=== PATIENT | male | born 1930 | race Caucasian/White ===

== ENCOUNTER 2018-01-20 06:24 | Emergency (ER) | payer MEDICARE ==
[2018-01-20] MEDS ORDERED: Sodium Chloride 0.9% 10 ML Syringe FLUSH PRN (06:43)
--- NOTE | 2018-01-20 06:49 | EDM.PDOC ---
ED HPI GENERAL MEDICAL PROBLEM - General Source of Information: Reports: Patient, Fpc Records, RN, RN Notes Reviewed History Limitations: Reports: Altered Mental Status - History of Present Illness Onset: Today, Sudden <China Jackson - Last Filed: 01/20/18 07:17> - General Source of Information: Reports: Family (, [id number]) - History of Present Illness Location: Reports: Head Severity: Moderate Associated Symptoms: Reports: No Other Symptoms <Myrna Rene - Last Filed: 01/20/18 08:38> - General Chief Complaint: Head Injury Stated Complaint: FALL IN BY AMB Time Seen by Provider: 01/20/18 06:40 - History of Present Illness INITIAL COMMENTS - FREE TEXT/NARRATIVE: Pt to ER per [facility] after a fall at the [facility]. [facility] records show the patient is up with one assist and a walker. Patient is confused upon arrival, but patient was just admitted to [facility] yesterday, and it is unknown what his baseline is. GCS upon arrival is 14. Patient obeys commands, does not always answer appropriately. States "yes" to most questions. No obvious deformity, bruising, abrasions other than large hematoma on left occiput of head. Patient airway patent, breathing adequately on his own. HR irreg. (China Jackson) I assumed care of pt from China CROWE at 0700HR shift change with CT Head report pending. No changes to CC/HPI, Hx, ROS, or exam as documented by China for this encounter. Pt arrived without C-collar. He was reported to have full spontaneous ROM of his neck, and C-spine was cleared on arrival by Hx and exam by China. Pt's family state pt is at his baseline for mental status and confusion. Family states pt has advanced Alzheimer's dementia. (Myrna Rene) - Related Data Allergies Allergy/AdvReac Type Severity Reaction Status Date / Time aspirin Allergy Other Verified 01/20/18 06:48 Past Medical History Psychiatric History: Reports: Alzheimers Disease <Myrna Rene - Last Filed: 01/20/18 08:38> Social & Family History - Family History Family Medical History: Unobtainable - Living Situation & Occupation Living situation: Reports: , Extended Care Facility Occupation: Retired <Myrna Rene - Last Filed: 01/20/18 08:38> Review of Systems - Review of Systems Review Of Systems: ROS reveals no pertinent complaints other than HPI. <China Jackson - Last Filed: 01/20/18 07:17> ED EXAM, GENERAL - Physical Exam Exam: See Below Exam Limited By: Altered Mental Status General Appearance: Alert, No Apparent Distress Eye Exam: Bilateral Eye: PERRL (2, sluggish) Ears: Normal External Exam, Hearing Grossly Normal Nose: Normal Inspection Throat/Mouth: Normal Inspection, Normal Voice, No Airway Compromise Head: Other (large hematoma to the left occiput) Neck: Normal Inspection Respiratory/Chest: No Respiratory Distress, Lungs Clear, No Accessory Muscle Use , Chest Non-Tender, Decreased Breath Sounds Cardiovascular: Normal Peripheral Pulses, Irregularly Irregular Peripheral Pulses: 2+: Radial (L), Radial (R) GI/Abdominal: Normal Bowel Sounds, Soft, Non-Tender (Male) Exam: Deferred Rectal (Males) Exam: Deferred Back Exam: Normal Inspection, Decreased Range of Motion Extremities: Normal Inspection, Non-Tender, No Pedal Edema, Normal Capillary Refill, Limited Range of Motion Neurological: Alert, Inattentive, Confused, Disoriented, Slow to Respond Psychiatric: Flat Affect Skin Exam: Warm, Dry, Intact, Normal Color <China Jackson - Last Filed: 01/20/18 07:17> - Physical Exam Neck: Supple, Non-Tender, Full Range of Motion, Carotid Bruit. No: Tender Lateral, Tender Midline Extremities: No: Joint Swelling, Arm Pain, Leg Pain Neurological: Oriented (to person only), Normal Gait, Other (GCS 14 at 1 hour and at discharge.) <Myrna Rene - Last Filed: 01/20/18 08:38> - Physical Exam Free Text/Narrative:: No changes to exam as documented by China Jackson [facility] for this encounter. Pt ambulated well in the ER with use of walker. Pt denies pain. Family noted some redness and inflammation at the Rt eye/eyelid. state he just finished tx for conjunctivitis. There is no drainage or matting. (Myrna Rene) EKG INTERPRETATION EKG Date: 01/20/18 Time: 06:53 Rhythm: A-Fib Rate (Beats/Min): 103 Comparison: NA - No Prior EKG <China Jackson - Last Filed: 01/20/18 07:17> P-Wave: Absent QRS: LBBB ST-T: Normal QT: Normal <Myrna Rene - Last Filed: 01/20/18 08:38> Course <China Jackson - Last Filed: 01/20/18 07:17> - Radiology Interpretation CT Results Date: 01/20/18 <Myrna Rene - Last Filed: 01/20/18 08:38> - Orders/Labs/Meds Orders: Active Orders 24 hr Category Date Time Status EKG Documentation Completion [RC] STAT Care 01/20/18 06:43 Active Peripheral IV Care [RC] . DIRECTED Care 01/20/18 06:45 Active Head w Cont [CT] Stat Exams 01/20/18 07:27 Taken UA W/MICROSCOPIC [URIN] Stat Lab 01/20/18 06:43 Ordered Sodium Chloride 0.9% [Saline Flush] Med 01/20/18 06:43 Active 10 ml FLUSH ASDIRECTED PRN Peripheral IV Insertion Adult [OM.PC] Stat Oth 01/20/18 06:43 Ordered Medication Orders Sodium Chloride (Saline Flush) 10 ml FLUSH ASDIRECTED PRN PRN Reason: Keep Vein Open Labs: Laboratory Tests 01/20/18 01/20/18 01/20/18 Range/Units 06:37 06:37 06:37 WBC 5.1 (5.0-10.0) 10^3/uL RBC 7.24 H (4.6-6.2) 10^6/uL Hgb 16.7 (14.0-18.0) g/dL Hct 58.1 H (40.0-54.0) % MCV 80.2 (80-100) fL MCH 23.1 L (27.0-34.0) pg MCHC 28.7 L (33.0-35.0) g/dL Plt Count 166 (150-450) 10^3/uL Neut % (Auto) 67.2 (42.2-75.2) % Lymph % (Auto) 24.6 (20.5-50.1) % Reynolds % (Auto) 7.2 (2-8) % Eos % (Auto) 0.6 L (1.0-3.0) % Baso % (Auto) 0.4 (0.0-1.0) % PT 14.4 H (9.0-12.0) SEC INR 1.5 H (0.9-1.2) Sodium 133 L (135-145) mmol/L Potassium 4.5 (3.6-5.0) mmol/L Chloride 95 L (101-111) mmol/L Carbon Dioxide 30.0 (21.0-31.0) mmol/L Anion Gap 12.5 BUN 19 H (7-18) mg/dL Creatinine 0.9 (0.6-1.3) mg/dL Est Cr Clr Drug Dosing TNP Estimated GFR (MDRD) > 60 BUN/Creatinine Ratio 21.11 Glucose 86 (74-105) mg/dL Calcium 9.0 (8.4-10.2) mg/dl Total Bilirubin 1.2 H (0.2-1.0) mg/dL AST 19 (10-42) IU/L ALT 12 (10-60) IU/L Alkaline Phosphatase 77 (42-121) IU/L Troponin I < 0.02 (0.00-0.02) ng/ml Total Protein 6.8 (6.7-8.2) g/dl Albumin 4.1 (3.2-5.5) g/dl Globulin 2.7 Albumin/Globulin Ratio 1.52 Meds: Medications Generic Name Dose Route Start Last Admin Trade Name Freq PRN Reason Stop Dose Admin Sodium Chloride 10 ml 01/20/18 06:43 Saline Flush FLUSH ASDIRECTED PRN Keep Vein Open Discontinued Medications Generic Name Dose Route Start Last Admin Trade Name Freq PRN Reason Stop Dose Admin Iopamidol 50 ml 01/20/18 07:27 01/20/18 07:56 Isovue-300 (61%) IVPUSH 01/20/18 07:28 50 ml ONETIME ONE Administration - Radiology Interpretation Free Text/Narrative:: Head CT: See rad report (China Jackson) [facility] Final Radiology Report Call: [phone] assistance Online chat: [email or web address] Name: TREY TUCKER Age: 87Years M Date: 01/20/2018 SSN: -- : [id number] Study: CT HEAD WO Requesting Physician: China Jackson Images: 145 Addl Studies: Provided Clinical History: Contrast: Without Contrast Medium: Contrast Amount: Contrast Method: Page 1 of 2 EXAM: CT Head Without Intravenous Contrast EXAM DATE/TIME: 01/20/2018 6:44 AM CLINICAL HISTORY: 87 years old, male; Injury or trauma; Fall; Initial encounter; Blunt trauma ( contusions or hematomas); Consciousness not specified; Patient HX: Fall, hit back of head. On plavix TECHNIQUE: Axial computed tomography images of the head/brain without intravenous contrast. All CT scans at this facility use at least one of these dose optimization techniques: automated exposure control; mA and/or kV adjustment per patient size (includes targeted exams where dose is matched to clinical indication); or iterative reconstruction. Coronal and sagittal reformatted images were created and reviewed. COMPARISON: No relevant prior studies available. FINDINGS: Brain: Atrophy and chronic small vessel ischemia. Midline shift: No midline shift or herniation. Ventricles: Compensatory ventricular enlargement. Sella: Partially empty sella. Bones/joints: No calvarial fracture. Sinuses: Bilateral transverse sigmoid sinuses and confluence-probable normal variant vs hemorrhage or thrombosis. Minimal sinus disease. Mastoid air cells: Normal mastoid air cells. Orbits: Remote cataract surgical findings. Soft tissues: Moderate to large left posterior scalp hematoma with subgaleal component. TREY TUCKER | Final Radiology Report CONFIDENTIALITY STATEMENT This report is intended only for use by the referring physician, and only in accordance with law. If you received this in error, call [phone]. Page 2 of 2 Vasculature: Intracranial arterial calcifications. Nasal cavity: Deviated nasal septum and bony spurring. IMPRESSION: 1. Large posterior left scalp hematoma with subgaleal component. 2. No calvarial fracture. 3. Borderline hyperdense confluence, bilateral transverse and sigmoid venous sinuses. Finding likely represents a normal variant; however, difficult to exclude subdural hematoma or thrombosis. Recommend correlation with either post IV contrast CT Brain or MRI Brain to clarify findings. 4. Atrophy and chronic small vessel ischemia. Thank you for allowing us to participate in the care of your patient. Dictated and Authenticated by: Be Negron MD 01/20/2018 7:03 AM Central Time ([place] & [place]) [facility] Final Radiology Report Call: [phone] assistance Online chat: [email or web address] Name: TREY TUCKER Age: 87Years M Date: 01/20/2018 SSN: -- : [id number] Study: CT HEAD W Requesting Physician: MYRNA RENE Images: 144 Addl Studies: Provided Clinical History: Contrast: With Contrast Medium: isovue 300 Contrast Amount: 50 mL Contrast Method: rac Page 1 of 2 EXAM: CT Head With Intravenous Contrast EXAM DATE/TIME: 01/20/2018 7:43 AM CLINICAL HISTORY: 87 years old, male; Abnormal findings; Abnormal radiologic findings of head/ skull; Not specified; Patient HX: CT w/ contrast recommend by rad to R/O hemmorhage TECHNIQUE: Axial. + IV contrast. CONTRAST: 50 ml of isovue 300 administered intravenously. COMPARISON: CT Head wo Cont 01/20/2018 6:44 AM FINDINGS: Brain: No evidence of thrombosis or subdural hemorrhage. Unchanged atrophy and chronic small vessel ischemia. Old, subtle, left pontine lacunar infarct is better seen on postcontrast images. Midline shift: No midline shift or herniation. Ventricles: Unchanged compensatory ventricular enlargement. Bones/joints: No calvarial fracture. Sinuses: No air-fluid levels in the sinuses. Mastoid air cells: Normal mastoids. Orbits: Unchanged normal optic globes and orbits. Soft tissues: Unchanged large posterior scalp hematoma. Vasculature: Normal enhancing posterior intracranial venous sinuses in confluence. TREY TUCKER | Final Radiology Report CONFIDENTIALITY STATEMENT This report is intended only for use by the referring physician, and only in accordance with law. If you received this in error, call [phone]. Page 2 of 2 IMPRESSION: 1. Negative CT Brain for hemorrhage or thrombus. 2. Unchanged atrophy and chronic small vessel ischemia. 3. No mass effect or shift/herniation. 4. 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 Thank you for allowing us to participate in the care of your patient. Dictated and Authenticated by: Be Negron MD 01/20/2018 8:14 AM Central Time ([place] & [place]) (Myrna Rene) Departure <China Jackson - Last Filed: 01/20/18 07:17> - Departure Time of Disposition: 08:26 Condition: Good - Discharge Information *PRESCRIPTION DRUG MONITORING PROGRAM REVIEWED*: No *COPY OF PRESCRIPTION DRUG MONITORING REPORT IN PATIENT VANNA: No <Myrna Rene - Last Filed: 01/20/18 08:38> - Departure Disposition: Home, Self-Care 01 Clinical Impression: Traumatic hematoma of scalp Qualifiers: Encounter type: initial encounter Qualified Code(s): S00.03XA - Contusion of scalp, initial encounter Fall at snf Qualifiers: Encounter type: initial encounter Qualified Code(s): W19.XXXA - Unspecified fall, initial encounter - Discharge Information Instructions: Hematoma, [id number] Referrals: PCP,Not In Area [Primary Care Provider] - Forms: ED Department Discharge Additional Instructions: Increase falls precautions. Follow up with primary doctor for recheck as needed. - My Orders Last 24 Hours: My Active Orders 01/20/18 07:27 Head w Cont [CT] Stat - Assessment/Plan Last 24 Hours: My Active Orders 01/20/18 07:27 Head w Cont [CT] Stat
[2018-01-20 07:06] LABS: ANION GAP 12.5; CHLORIDE,CL 95 mmol/L (101-111); SODIUM,NA 133 mmol/L (135-145)
[2018-01-20] MEDS ORDERED: Iopamidol 612 MG/ML 50 ML SDV IVPUSH ONE (07:27)
== END 2018-01-20 08:59 | disposition home or self-care (01) ==
LOC: DL.ED 06:24
DX: S00.03XA Contusion of scalp, initial encounter (principal); W19.XXXA Unspecified fall, initial encounter; Y92.129 Unspecified place in nursing home as the place of occurrence of the external cause
CPT/HCPCS: 36415; 70450; 70460; 80053; 84484; 85025; 85610; 99285; Q9967